=== PATIENT | female | born 1950 | race Caucasian/White ===

== ENCOUNTER 2016-09-27 16:24 | Emergency (ER) | payer SELFPAY ==
[~2016-09-27] VITALS: Ht 154.9 cm; Wt 63.0 kg
[2016-09-27 16:27] VITALS: Ht 154.9 cm; Wt 63.0 kg
== END 2016-09-28 01:33 | disposition left against medical advice (07) ==
LOC: E/R 16:24
DX: Z53.21 Procedure and treatment not carried out due to patient leaving prior to being seen by health care provider (principal)